=== PATIENT | female | born 1995 | race Caucasian/White ===

== ENCOUNTER 2019-12-29 21:50 | Inpatient (IN) | payer OTHER, BC ==
[2019-12-29] MEDS ORDERED: CEFAZOLIN 2 GM in Premix Bag 1 BAG IVPB SCH (22:30)
[2019-12-29] MEDS ORDERED: Dextrose 50% Abboject 50 ML SYRINGE SLOW IVP PRN (23:09)
[2019-12-29] MEDS ORDERED: Cyclobenzaprine 10 MG TAB PO PRN (23:09)
[2019-12-29] MEDS ORDERED: hydrALAZINE 20 MG/ML VIAL SLOW IVP PRN (23:09)
[2019-12-29] MEDS ORDERED: Ondansetron ODT 4 MG TAB PO PRN (23:09)
[2019-12-29] MEDS ORDERED: Dextrose 5% in Water 1,000 ML IV PRN (23:09)
[2019-12-29] MEDS ORDERED: Ondansetron PF 4 MG/2 ML Vial IVP PRN (23:09)
[2019-12-29] MEDS ORDERED: Promethazine HCl 25 MG/ML VIAL IM PRN ×2 (23:09)
[2019-12-29] MEDS ORDERED: Melatonin 3 MG TAB PO PRN (23:09)
[2019-12-29] MEDS ORDERED: Morphine 4 MG/ML VIAL ONE (23:13)
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
[2019-12-29] MEDS ORDERED: Ketorolac Tromethamine 30 MG/ML VIAL ONE (23:22)
[2019-12-29] MEDS ORDERED: Ketorolac Tromethamine 30 MG/ML VIAL IVP SCH (23:30)
[2019-12-29] MEDS ORDERED: Acetaminophen 500 MG TAB PO SCH (23:59)
[2019-12-29] MEDS ORDERED: traMADol HCl 50 MG TAB PO SCH (23:59)
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
[2019-12-30] MEDS ORDERED: Midazolam HCl 2 mg/2 ml Vial ONE (00:30)
[2019-12-30] MEDS ORDERED: Fentanyl 100 MCG/2 ML VIAL ONE ×2 (00:30→02:16)
[2019-12-30] MEDS ORDERED: Meperidine HCl/PF 25 MG/ML VIAL ONE (01:51)
[2019-12-30] MEDS ORDERED: Promethazine HCl 25 MG/ML VIAL ONE (02:26)
[2019-12-30] MEDS ORDERED: Morphine 2 MG/ML VIAL ONE (02:36)
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
[2019-12-30] MEDS: Morphine 2 MG/ML VIAL SLOW IVP PRN ×3 (03:32→07:53)
[2019-12-30] MEDS: traMADol HCl 50 MG TAB PO PRN ×3 (03:34→16:20)
[2019-12-30] MEDS: Sodium Chloride 0.9% 1,000 ML IV SCH (03:56)
[2019-12-30] MEDS: traMADol HCl 50 MG TAB PO SCH ×4 (03:59→22:42)
[2019-12-30] MEDS: Acetaminophen 500 MG TAB PO SCH ×4 (03:59→21:14)
[2019-12-30 04:15] VITALS: BMI 24.6
[2019-12-30] MEDS: CEFAZOLIN 2 GM in Premix Bag 1 BAG IVPB SCH ×3 (04:55→21:21)
[2019-12-30] MEDS: Levothyroxine Sodium 25 MCG TAB PO SCH (04:56)
[2019-12-30 05:30] LABS: #Lymphocytes 0.9 thou/uL (1.20-3.40); #Monocytes 0.4 thou/uL (0.11-0.59); #Neutrophils 9.3 thou/uL (1.40-6.50); %Basophils 0.2 % (0.0-1.0); %Eosinophils 0.2 % (0.0-10.0); %Lymphocytes 8.1 % (21.0-51.0); %Monocytes 3.7 % (0.0-10.0); %Neutrophils 87.8 % (42.0-75.0); Hemoglobin 9.8 g/dL (12.0-16.0); Mean Corpuscular HGB CONC 32.1 g/dL (32.0-36.0); Mean Corpuscular Hemoglobin 30.8 pg (27.0-31.0); Mean Platelet Volume 8.3 fL (7.4-10.4); Platelet Count 168 thou/uL (130-400); RBC Distribution Width 11.8 % (11.5-14.5); Red Blood Cell (RBC) Count 3.17 mill/uL (4.20-5.40); White Blood Cell (WBC) Count 10.6 thou/uL (4.8-10.8)
[2019-12-30 05:42] LABS: Anion Gap 11 mmol/L (10-20); BUN (Urea Nitrogen) 11 mg/dL (7.0-18.7); Calc. Creatinine Clearance 155 mL/min (70-130); Carbon Dioxide 21 mmol/L (22-29); Chloride 110 mmol/L (98-107); Estimated GFR-MDRD Greater than 90; Glucose 140 mg/dL (70-105); Sodium 138 mmol/L (136-145)
[2019-12-30] MEDS: Ibuprofen 600 MG TAB PO PRN ×2 (05:51→14:49)
[2019-12-30] MEDS: Bupropion 150 MG XL TAB PO SCH (07:57)
[2019-12-30] MEDS: Famotidine 20 MG TAB PO SCH ×2 (07:57→21:12)
[2019-12-30] MEDS: Propranolol HCl 20 MG TAB PO SCH ×2 (07:58→21:10)
[2019-12-30] MEDS: OXcarbazepine 300 MG TAB PO SCH ×2 (07:58→21:23)
--- NOTE | 2019-12-30 08:21 | RAD ---
LEFT FORELEG 2 VIEWS: Date: 12/30/2019 INDICATION: Open reduction and internal fixation of left tibia. FINDINGS: Submitted images demonstrate placement of external fixator pins within the tibial shaft. There is a h eavily comminuted tibial plateau fracture. Total fluoroscopic time was 16.1 seconds. Total exposure w as 1.36 milligray. IMPRESSION: External fixator placement traversing comminuted proximal tibial plateau fracture. POS: BH
[2019-12-30 08:46] LABS: Magnesium 1.8 mg/dL (1.6-2.6); Phosphorus 3.3 mg/dL (2.3-4.7)
[2019-12-30] MEDS ORDERED: Gabapentin 400 MG CAP PO SCH (09:00)
[2019-12-30] MEDS: Enoxaparin Sodium 40 MG/0.4 ML SYRINGE SC SCH (09:18)
[2019-12-30] MEDS ORDERED: Magnesium 2 GM/50 ML 2 GM in Premix Bag 1 BAG IVPB SCH (09:30)
[2019-12-30] MEDS ORDERED: PHOS-NAK 1 PKT PACK PO SCH (09:30)
[2019-12-30] MEDS ORDERED: Ondansetron PF 4 MG/2 ML Vial ONE (10:51)
[2019-12-30] MEDS ORDERED: Glycopyrrolate 0.2 MG/ML 5 ML SYRINGE ONE (10:51)
[2019-12-30] MEDS ORDERED: Rocuronium Bromide 10 MG/ML (10ML VIAL) ONE (10:51)
[2019-12-30] MEDS ORDERED: PROPOFOL 200 MG/20 ML VIAL ONE (10:51)
[2019-12-30] MEDS ORDERED: Dexamethasone 20 MG/5 ML VIAL ONE (10:51)
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
[2019-12-30] MEDS: Gabapentin 400 MG CAP PO SCH ×2 (14:43→21:12)
[2019-12-30] MEDS: Cyclobenzaprine 10 MG TAB PO PRN ×2 (14:49→21:13)
[2019-12-30 16:04] LABS: SARS-CoV-2 MS2 Positive; SARS-CoV-2 N Gene Negative; SARS-CoV-2 S Gene Negative; SARS-CoV-2 by NAA Not Detected (NotDetected); SARS-CoV-2 orf1ab Negative
[2019-12-30] MEDS ORDERED: Morphine 2 MG/ML VIAL SLOW IVP PRN (21:48)
[2019-12-30] MEDS: Ibuprofen 600 MG TAB PO SCH (22:42)
--- NOTE | 2019-12-31 00:25 | PRG ---
DATE OF SERVICE: 12/30/2019 SUBJECTIVE: The patient was seen during evening rounds, resting comfortably in no acute distress. The patient's nurse reports that she was having increased pain earlier, but has now fallen asleep. The patient is postop day 0, status post external fixation of her left tibial plateau fracture and fasciotomy of her left leg. OBJECTIVE: VITAL SIGNS: Stable and she remains afebrile. Urinary output has been adequate for the patient's age and weight. PLAN: Continue pain regimen and supportive care. Dr. Rawls plans to take the patient back to the OR on . Continue regular diet as tolerated. We will continue the patient's psychiatric medications. Job ID: [id number]
[2019-12-31] MEDS: traMADol HCl 50 MG TAB PO SCH ×4 (04:55→23:21)
[2019-12-31 04:57] LABS: #Eosinphils 0.1 thou/uL (0.0-0.7); #Lymphocytes 2.3 thou/uL (1.20-3.40); #Monocytes 0.5 thou/uL (0.11-0.59); #Neutrophils 3.8 thou/uL (1.40-6.50); %Basophils 0.3 % (0.0-1.0); %Eosinophils 1.3 % (0.0-10.0); %Monocytes 7.6 % (0.0-10.0); %Neutrophils 56.9 % (42.0-75.0); Hemoglobin 9.2 g/dL (12.0-16.0); Mean Corpuscular HGB CONC 32.5 g/dL (32.0-36.0); Mean Corpuscular Hemoglobin 31.9 pg (27.0-31.0); Platelet Count 145 thou/uL (130-400); RBC Distribution Width 11.8 % (11.5-14.5); Red Blood Cell (RBC) Count 2.88 mill/uL (4.20-5.40); White Blood Cell (WBC) Count 6.6 thou/uL (4.8-10.8)
[2019-12-31] MEDS: CEFAZOLIN 2 GM in Premix Bag 1 BAG IVPB SCH (04:57)
[2019-12-31] MEDS: Acetaminophen 500 MG TAB PO SCH ×4 (04:57→20:36)
[2019-12-31] MEDS: Levothyroxine Sodium 25 MCG TAB PO SCH (04:57)
[2019-12-31] MEDS: Ibuprofen 600 MG TAB PO SCH ×3 (04:57→20:36)
[2019-12-31 05:20] LABS: Anion Gap 8 mmol/L (10-20); BUN (Urea Nitrogen) 8 mg/dL (7.0-18.7); Calc. Creatinine Clearance 165 mL/min (70-130); Calcium 8.4 mg/dL (7.8-10.44); Carbon Dioxide 25 mmol/L (22-29); Chloride 108 mmol/L (98-107); Estimated GFR-MDRD Greater than 90; Glucose 89 mg/dL (70-105); Magnesium 2.1 mg/dL (1.6-2.6); Phosphorus 2.5 mg/dL (2.3-4.7); Potassium 3.8 mmol/L (3.5-5.1); Sodium 137 mmol/L (136-145)
[2019-12-31] MEDS ORDERED: PHOS-NAK 1 PKT PACK PO SCH (07:45)
[2019-12-31] MEDS: Bupropion 150 MG XL TAB PO SCH (08:08)
[2019-12-31] MEDS: Propranolol HCl 20 MG TAB PO SCH ×2 (08:09→20:38)
[2019-12-31] MEDS: Gabapentin 400 MG CAP PO SCH ×3 (08:09→20:37)
[2019-12-31] MEDS: Famotidine 20 MG TAB PO SCH ×2 (08:09→20:37)
[2019-12-31] MEDS: OXcarbazepine 300 MG TAB PO SCH ×2 (08:09→20:38)
[2019-12-31] MEDS: Enoxaparin Sodium 40 MG/0.4 ML SYRINGE SC SCH (08:10)
[2019-12-31] MEDS ORDERED: CEFAZOLIN 2 GM in Premix Bag 1 BAG IVPB SCH (08:30)
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
--- NOTE | 2019-12-31 14:53 | CT ---
CT Lower Ext Lt WO Con History: External fixator placement Comparison: Radiograph 2 days prior Findings: Large lipohemarthrosis as well as small foci of osseous debris within the superolateral rec ess. Extensive edema within the anterior, lateral, and posterior compartments of the left leg below the knee. Recent anterior left leg fasciotomy. The medial femoral condyle is not fractured. Intra-articular fracture of the lateral femoral condyle involves the anterolateral 25% articular surface and extends above the articular cortex 4.5 cm. There is interposed bone in the fracture fragment which prevents apposition of the medullary trabecul a by 3-4 mm. At the articular surface there is impaction of the articular cortex into the medullary cavity with a 9 mm in transverse and 4 mm in AP dimension cortical gap. Comminuted fracture of the medial tibial plateau with 4 mm anterior surface incongruence. The anterio r intercondylar eminences free-floating. There is dissociation between the metaphysis and diaphysis. Of the lateral tibial plateau there is a 2 cm in transverse of the articular surfaces which extends a nterior-posterior. The tibial fracture extends distal to the joints approximately 12 cm. No fibular fracture. Concern for interposition of the popliteus muscle into the fracture fragments of the tibia. Normal location of the patella. Impression: 1. Severely comminuted right tibial plateau fractures as described with large articular surface gaps as well as impacted cortical bone. 2. Sagittal oblique fracture through the lateral femoral condyle with interposed cortical bone betwee n the fracture fragments preventing apposition. 3. Concern for interposition of popliteus muscle within the fragmented component of the distal tibial fracture. 4. Recent fasciotomy change with moderate intramuscular and intermuscular edema of the anterior, late ral and posterior compartments. 5. Small fragments of osseous debris is seen between the soleus and gastrocnemius muscles likely from ruptured popliteus bursa.
--- NOTE | 2019-12-31 21:41 | PRG ---
DATE OF SERVICE: 12/31/2019 SUBJECTIVE: The patient was seen during evening rounds, awake, alert, in no distress. The patient reports some [id number] pain to her left lower extremity. The patient currently has an external fixator in place. The patient has been tolerating a diet and denies any nausea or vomiting. The patient became tearful after talking about having continued pain. The patient reports passing out whenever she attempted to work with Physical Therapy. Vital signs stable, afebrile. Urinary output is adequate for patient's age and weight. PLAN: N.p.o. after midnight. Orthopedic Surgery plans to take the patient to the OR in the morning. We will continue pain regimen. Job ID: [id number]
[2019-12-31] MEDS: Cyclobenzaprine 10 MG TAB PO PRN (21:42)
[2020-01-01] MEDS: Ibuprofen 600 MG TAB PO SCH ×3 (05:03→22:59)
[2020-01-01] MEDS: Acetaminophen 500 MG TAB PO SCH ×4 (05:03→22:59)
[2020-01-01] MEDS: Levothyroxine Sodium 25 MCG TAB PO SCH (05:03)
[2020-01-01] MEDS: traMADol HCl 50 MG TAB PO SCH ×4 (05:04→19:52)
[2020-01-01 08:02] LABS: #Eosinphils 0.1 thou/uL (0.0-0.7); #Lymphocytes 1.6 thou/uL (1.20-3.40); #Monocytes 0.5 thou/uL (0.11-0.59); #Neutrophils 3.9 thou/uL (1.40-6.50); %Basophils 0.4 % (0.0-1.0); %Eosinophils 2.2 % (0.0-10.0); %Lymphocytes 26.4 % (21.0-51.0); %Monocytes 7.9 % (0.0-10.0); %Neutrophils 63.1 % (42.0-75.0); Hemoglobin 9.1 g/dL (12.0-16.0); Mean Corpuscular HGB CONC 33.2 g/dL (32.0-36.0); Mean Corpuscular Hemoglobin 32.3 pg (27.0-31.0); Mean Corpuscular Volume 97.4 fL (78.0-98.0); Mean Platelet Volume 8.1 fL (7.4-10.4); Platelet Count 172 thou/uL (130-400); RBC Distribution Width 11.7 % (11.5-14.5); Red Blood Cell (RBC) Count 2.82 mill/uL (4.20-5.40); White Blood Cell (WBC) Count 6.1 thou/uL (4.8-10.8)
[2020-01-01] MEDS: Gabapentin 400 MG CAP PO SCH ×3 (08:14→19:52)
[2020-01-01] MEDS: OXcarbazepine 300 MG TAB PO SCH ×2 (08:14→19:52)
[2020-01-01] MEDS: Famotidine 20 MG TAB PO SCH (08:14)
[2020-01-01] MEDS: Enoxaparin Sodium 40 MG/0.4 ML SYRINGE SC SCH (08:15)
[2020-01-01 08:59] LABS: Anion Gap 12 mmol/L (10-20); BUN (Urea Nitrogen) 11 mg/dL (7.0-18.7); Calc. Creatinine Clearance 173 mL/min (70-130); Calcium 8.8 mg/dL (7.8-10.44); Carbon Dioxide 24 mmol/L (22-29); Chloride 105 mmol/L (98-107); Estimated GFR-MDRD Greater than 90; Glucose 88 mg/dL (70-105); Magnesium 1.9 mg/dL (1.6-2.6); Phosphorus 3.3 mg/dL (2.3-4.7); Potassium 3.7 mmol/L (3.5-5.1); Sodium 137 mmol/L (136-145)
[2020-01-01] MEDS ORDERED: Morphine 4 MG/ML VIAL SLOW IVP PRN (09:25)
[2020-01-01] MEDS: Propranolol HCl 20 MG TAB PO SCH ×2 (10:00→19:52)
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
[2020-01-01] MEDS ORDERED: Fentanyl 100 MCG/2 ML VIAL ONE ×3 (11:51→13:47)
[2020-01-01] MEDS ORDERED: Midazolam HCl 2 mg/2 ml Vial ONE (11:51)
[2020-01-01] MEDS ORDERED: Rocuronium Bromide 10 MG/ML (10ML VIAL) ONE (12:18)
[2020-01-01] MEDS ORDERED: Glycopyrrolate 0.2 MG/ML 5 ML SYRINGE ONE (12:18)
[2020-01-01] MEDS ORDERED: Ondansetron PF 4 MG/2 ML Vial ONE (12:18)
[2020-01-01] MEDS ORDERED: Lidocaine 1% PF 5 ML VIAL ONE (12:18)
[2020-01-01] MEDS ORDERED: PROPOFOL 200 MG/20 ML VIAL ONE (12:18)
[2020-01-01] MEDS ORDERED: Dexamethasone 20 MG/5 ML VIAL ONE (12:18)
[2020-01-01] MEDS ORDERED: Ketorolac Tromethamine 30 MG/ML VIAL ONE (12:18)
[2020-01-01] MEDS ORDERED: SUGAMMADEX SODIUM 200 MG/2 ML VIAL ONE (13:14)
[2020-01-01] MEDS ORDERED: Promethazine HCl 25 MG/ML VIAL SLOW IVP PRN (13:28)
[2020-01-01] MEDS ORDERED: Ondansetron HCl/PF 4 MG/2 ML Vial IVP PRN (13:28)
[2020-01-01] MEDS ORDERED: Promethazine HCl 25 MG/ML VIAL IM PRN (13:28)
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
[2020-01-01] MEDS: Bupropion 150 MG XL TAB PO SCH (14:26)
[2020-01-01] MEDS: CEFAZOLIN 2 GM in Premix Bag 1 BAG IVPB SCH (19:51)
[2020-01-01] MEDS: Cyclobenzaprine 10 MG TAB PO PRN (20:46)
[2020-01-02] MEDS: Acetaminophen 500 MG TAB PO SCH ×4 (03:53→20:35)
[2020-01-02] MEDS: CEFAZOLIN 2 GM in Premix Bag 1 BAG IVPB SCH (03:53)
[2020-01-02] MEDS: traMADol HCl 50 MG TAB PO SCH ×4 (03:53→20:35)
[2020-01-02 04:54] LABS: #Lymphocytes 1.9 thou/uL (1.20-3.40); #Monocytes 0.6 thou/uL (0.11-0.59); #Neutrophils 4.7 thou/uL (1.40-6.50); %Basophils 0.2 % (0.0-1.0); %Eosinophils 0.6 % (0.0-10.0); %Lymphocytes 25.9 % (21.0-51.0); %Monocytes 7.7 % (0.0-10.0); %Neutrophils 65.6 % (42.0-75.0); Hemoglobin 8.6 g/dL (12.0-16.0); Mean Corpuscular HGB CONC 33.6 g/dL (32.0-36.0); Mean Corpuscular Hemoglobin 31.9 pg (27.0-31.0); Mean Platelet Volume 7.9 fL (7.4-10.4); Platelet Count 213 thou/uL (130-400); RBC Distribution Width 11.5 % (11.5-14.5); White Blood Cell (WBC) Count 7.2 thou/uL (4.8-10.8)
[2020-01-02 05:15] LABS: Phosphorus 3.6 mg/dL (2.3-4.7)
[2020-01-02 05:20] LABS: Anion Gap 11 mmol/L (10-20); BUN (Urea Nitrogen) 11 mg/dL (7.0-18.7); Calc. Creatinine Clearance 185 mL/min (70-130); Calcium 9.1 mg/dL (7.8-10.44); Carbon Dioxide 27 mmol/L (22-29); Chloride 104 mmol/L (98-107); Estimated GFR-MDRD Greater than 90; Glucose 105 mg/dL (70-105); Potassium 3.8 mmol/L (3.5-5.1); Sodium 138 mmol/L (136-145)
[2020-01-02] MEDS: Levothyroxine Sodium 25 MCG TAB PO SCH (06:09)
[2020-01-02] MEDS: Ibuprofen 600 MG TAB PO SCH ×3 (06:09→20:35)
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
[2020-01-02] MEDS ORDERED: Potassium Phosphate 15 MMOL in Sodium Chloride 0.9% 250 ML 250 ML IVPB SCH (07:15)
[2020-01-02] MEDS: Gabapentin 400 MG CAP PO SCH ×3 (09:56→20:35)
[2020-01-02] MEDS: Enoxaparin Sodium 40 MG/0.4 ML SYRINGE SC SCH (09:56)
[2020-01-02] MEDS: Bupropion 150 MG XL TAB PO SCH (09:57)
[2020-01-02] MEDS: OXcarbazepine 300 MG TAB PO SCH ×2 (09:57→20:37)
[2020-01-02] MEDS: Propranolol HCl 20 MG TAB PO SCH ×2 (10:09→21:38)
[2020-01-02] MEDS ORDERED: Sodium Chloride 0.9% 1,000 ML IV SCH (13:00)
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
[2020-01-02] MEDS: Cyclobenzaprine 10 MG TAB PO PRN (17:43)
[2020-01-03] MEDS: Acetaminophen 500 MG TAB PO SCH ×4 (04:42→21:00)
[2020-01-03] MEDS: Ibuprofen 600 MG TAB PO SCH ×3 (04:42→21:00)
[2020-01-03] MEDS: traMADol HCl 50 MG TAB PO SCH ×4 (04:43→21:00)
[2020-01-03] MEDS: Levothyroxine Sodium 25 MCG TAB PO SCH (04:43)
[2020-01-03] MEDS: Cyclobenzaprine 10 MG TAB PO PRN (04:47)
[2020-01-03 05:15] LABS: Hemoglobin 8.2 g/dL (12.0-16.0); Mean Corpuscular Hemoglobin 32.2 pg (27.0-31.0); Mean Corpuscular Volume 97.4 fL (78.0-98.0); Mean Platelet Volume 7.6 fL (7.4-10.4); Platelet Count 184 thou/uL (130-400); Red Blood Cell (RBC) Count 2.55 mill/uL (4.20-5.40); White Blood Cell (WBC) Count 6.5 thou/uL (4.8-10.8)
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
[2020-01-03] MEDS: Propranolol HCl 20 MG TAB PO SCH ×2 (09:11→21:02)
[2020-01-03] MEDS: Bupropion 150 MG XL TAB PO SCH (09:19)
[2020-01-03] MEDS: OXcarbazepine 300 MG TAB PO SCH ×2 (09:19→21:03)
[2020-01-03] MEDS: Gabapentin 400 MG CAP PO SCH ×3 (09:19→21:00)
[2020-01-03] MEDS: Enoxaparin Sodium 40 MG/0.4 ML SYRINGE SC SCH (09:20)
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
[2020-01-03] MEDS: Methocarbamol 500 MG TAB PO PRN (13:58)
[2020-01-04] MEDS: traMADol HCl 50 MG TAB PO SCH ×4 (05:01→19:58)
[2020-01-04] MEDS: Acetaminophen 500 MG TAB PO SCH ×4 (05:01→21:56)
[2020-01-04] MEDS: Ibuprofen 600 MG TAB PO SCH ×3 (05:03→21:56)
[2020-01-04] MEDS: Methocarbamol 500 MG TAB PO PRN (05:03)
[2020-01-04] MEDS: Levothyroxine Sodium 25 MCG TAB PO SCH (05:03)
[2020-01-04] MEDS: OXcarbazepine 300 MG TAB PO SCH ×2 (10:58→19:59)
[2020-01-04] MEDS: Gabapentin 400 MG CAP PO SCH ×3 (10:58→19:57)
[2020-01-04] MEDS: Bupropion 150 MG XL TAB PO SCH (10:58)
[2020-01-04] MEDS: Propranolol HCl 20 MG TAB PO SCH ×2 (11:02→19:57)
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
--- NOTE | 2020-01-04 23:23 | PRG ---
DATE OF SERVICE: 01/04/2020 SUBJECTIVE: The patient was seen during evening rounds, sitting up in hospital bed, awake, alert, in no distress. The patient is eating dinner and tolerating well. The patient continues to have some mild pain. OBJECTIVE: VITAL SIGNS: Stable. The patient is afebrile. GENERAL: Urinary output has been adequate for patient's weight. PLAN: Continue supportive care and pain regimen. The patient will be n.p.o. after midnight as she will be going to the OR to have her ex-fix to her left lower extremity internalized. We will continue lactulose until the patient has a bowel movement. Job ID: [id number]
[2020-01-05] MEDS: Acetaminophen 500 MG TAB PO SCH ×4 (03:24→21:30)
[2020-01-05] MEDS: traMADol HCl 50 MG TAB PO SCH ×4 (03:24→21:30)
[2020-01-05] MEDS: Levothyroxine Sodium 25 MCG TAB PO SCH (05:19)
[2020-01-05] MEDS: Ibuprofen 600 MG TAB PO SCH ×3 (05:19→21:30)
[2020-01-05] MEDS ORDERED: CEFAZOLIN 2 GM in Premix Bag 1 BAG IVPB SCH (08:00)
[2020-01-05] MEDS: Gabapentin 400 MG CAP PO SCH ×3 (10:56→21:31)
[2020-01-05] MEDS: Propranolol HCl 20 MG TAB PO SCH ×2 (10:57→21:29)
[2020-01-05] MEDS: Bupropion 150 MG XL TAB PO SCH (10:57)
[2020-01-05] MEDS: OXcarbazepine 300 MG TAB PO SCH ×2 (10:58→21:52)
[2020-01-05] MEDS ORDERED: PROPOFOL 200 MG/20 ML VIAL ONE (11:39)
[2020-01-05] MEDS ORDERED: PHENYLEPHRINE-NS 100 MCG/ML 10 ML SYRINGE ONE (11:39)
[2020-01-05] MEDS ORDERED: Dexamethasone 20 MG/5 ML VIAL ONE (11:39)
[2020-01-05] MEDS ORDERED: Lidocaine 1% PF 5 ML VIAL ONE (11:39)
[2020-01-05] MEDS ORDERED: Ondansetron PF 4 MG/2 ML Vial ONE (11:39)
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
[2020-01-05] MEDS ORDERED: Midazolam HCl 2 mg/2 ml Vial ONE (14:55)
[2020-01-05] MEDS ORDERED: Fentanyl 100 MCG/2 ML VIAL ONE ×4 (14:55→19:32)
[2020-01-05] MEDS ORDERED: Lidocaine 1% (PF) 30 ML VIAL ONE (15:03)
[2020-01-05] MEDS ORDERED: HYDROmorphone 0.5 MG/0.5 ML SYRINGE ONE (16:20)
[2020-01-05] MEDS ORDERED: Meperidine HCl/PF 25 MG/ML VIAL SLOW IVP PRN ×2 (19:12)
[2020-01-05] MEDS ORDERED: Promethazine HCl 25 MG/ML VIAL IM PRN (19:12)
[2020-01-05] MEDS ORDERED: Ondansetron HCl/PF 4 MG/2 ML Vial IVP PRN (19:12)
[2020-01-05] MEDS ORDERED: HYDROmorphone 2 MG/ML VIAL SLOW IVP PRN (19:12)
[2020-01-05] MEDS ORDERED: Promethazine HCl 25 MG/ML VIAL SLOW IVP PRN (19:12)
--- NOTE | 2020-01-05 20:09 | RAD ---
INTRAOPERATIVE FLUOROSCOPY: History: Left knee ORIF Exposure: 34.9 seconds, 1.8 mGy*cm^2 FINDINGS: Four intraoperative fluoroscopic images demonstrate internal fixation of a distal tibial fracture. Th ere are two screws projecting over the distal femur. IMPRESSION: Intraoperative fluoroscopy as above. POS: OFF
[2020-01-05] MEDS: CEFAZOLIN 2 GM in Premix Bag 1 BAG IVPB SCH (21:31)
[2020-01-05] MEDS: Methocarbamol 500 MG TAB PO PRN (21:53)
--- NOTE | 2020-01-05 22:59 | PRG ---
DATE OF SERVICE: 01/05/2020 SUBJECTIVE: The patient was seen during evening rounds, resting comfortably, in no acute distress. The patient arouse to voice and reports some moderate pain. The patient is postop day 0 status post internalization of her external fixator. The patient reports decreased appetite at this time. Left knee is splinted. Dressing is clean, dry, and intact. Left knee immobilizer in place. Vital signs stable, afebrile. Urinary output is adequate for the patient's age and weight. PLAN: Continue supportive care and pain regimen. Continue regular diet as tolerated. Increase physical and occupational therapy. We will continue to monitor lithium levels. The patient is pending insurance approval to inpatient rehab. Job ID: [id number]
[2020-01-06] MEDS: Acetaminophen 500 MG TAB PO SCH ×4 (03:13→22:00)
[2020-01-06] MEDS: traMADol HCl 50 MG TAB PO SCH ×4 (03:13→22:00)
[2020-01-06] MEDS: Methocarbamol 500 MG TAB PO PRN ×2 (04:03→15:52)
[2020-01-06 05:06] LABS: #Lymphocytes 1.2 thou/uL (1.20-3.40); #Monocytes 0.8 thou/uL (0.11-0.59); #Neutrophils 6.4 thou/uL (1.40-6.50); %Basophils 0.1 % (0.0-1.0); %Eosinophils 0.1 % (0.0-10.0); %Lymphocytes 14.5 % (21.0-51.0); %Monocytes 9.6 % (0.0-10.0); %Neutrophils 75.7 % (42.0-75.0); Hemoglobin 7.7 g/dL (12.0-16.0); Mean Corpuscular HGB CONC 32.1 g/dL (32.0-36.0); Mean Corpuscular Hemoglobin 30.4 pg (27.0-31.0); Mean Corpuscular Volume 94.5 fL (78.0-98.0); Mean Platelet Volume 7.6 fL (7.4-10.4); Platelet Count 403 thou/uL (130-400); RBC Distribution Width 11.7 % (11.5-14.5); Red Blood Cell (RBC) Count 2.54 mill/uL (4.20-5.40); White Blood Cell (WBC) Count 8.4 thou/uL (4.8-10.8)
[2020-01-06 05:31] LABS: Anion Gap 13 mmol/L (10-20); BUN (Urea Nitrogen) 11 mg/dL (7.0-18.7); Calc. Creatinine Clearance 185 mL/min (70-130); Calcium 9.4 mg/dL (7.8-10.44); Carbon Dioxide 24 mmol/L (22-29); Chloride 103 mmol/L (98-107); Estimated GFR-MDRD Greater than 90; Glucose 101 mg/dL (70-105); Magnesium 2.1 mg/dL (1.6-2.6); Phosphorus 3.5 mg/dL (2.3-4.7); Potassium 4.3 mmol/L (3.5-5.1); Sodium 136 mmol/L (136-145)
[2020-01-06] MEDS: CEFAZOLIN 2 GM in Premix Bag 1 BAG IVPB SCH ×3 (06:00→22:08)
[2020-01-06] MEDS: Ibuprofen 600 MG TAB PO SCH ×3 (06:01→19:32)
[2020-01-06] MEDS: Levothyroxine Sodium 25 MCG TAB PO SCH (06:01)
[2020-01-06] MEDS: Bupropion 150 MG XL TAB PO SCH (08:44)
[2020-01-06] MEDS: Propranolol HCl 20 MG TAB PO SCH ×2 (08:45→22:05)
[2020-01-06] MEDS: Gabapentin 400 MG CAP PO SCH ×3 (08:45→22:01)
[2020-01-06] MEDS: OXcarbazepine 300 MG TAB PO SCH ×2 (08:51→22:08)
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
[2020-01-06] MEDS: Enoxaparin Sodium 40 MG/0.4 ML SYRINGE SC SCH (14:50)
[2020-01-06] MEDS ORDERED: Ketorolac Tromethamine 30 MG/ML VIAL IVP SCH (19:30)
[2020-01-06] MEDS ORDERED: Ketorolac Tromethamine 30 MG/ML VIAL ONE (19:34)
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
[2020-01-06] MEDS: Ascorbic Acid 500 mg Chewable Tablet PO SCH (22:01)
[2020-01-07] MEDS: Methocarbamol 500 MG TAB PO PRN (01:29)
[2020-01-07] MEDS: Acetaminophen 500 MG TAB PO SCH ×4 (03:24→20:28)
[2020-01-07] MEDS: traMADol HCl 50 MG TAB PO SCH ×4 (03:25→20:29)
[2020-01-07 05:25] LABS: #Eosinphils 0.1 thou/uL (0.0-0.7); #Lymphocytes 1.9 thou/uL (1.20-3.40); #Monocytes 0.7 thou/uL (0.11-0.59); #Neutrophils 4.3 thou/uL (1.40-6.50); %Basophils 0.3 % (0.0-1.0); %Eosinophils 1.7 % (0.0-10.0); %Lymphocytes 26.6 % (21.0-51.0); %Neutrophils 61.3 % (42.0-75.0); Hemoglobin 7.5 g/dL (12.0-16.0); Mean Corpuscular Hemoglobin 31.3 pg (27.0-31.0); Mean Corpuscular Volume 94.8 fL (78.0-98.0); Mean Platelet Volume 7.3 fL (7.4-10.4); Platelet Count 414 thou/uL (130-400); RBC Distribution Width 12.1 % (11.5-14.5); Red Blood Cell (RBC) Count 2.39 mill/uL (4.20-5.40)
[2020-01-07] MEDS: Ibuprofen 600 MG TAB PO SCH ×3 (05:37→20:28)
[2020-01-07] MEDS: Levothyroxine Sodium 25 MCG TAB PO SCH (05:37)
[2020-01-07] MEDS ORDERED: Senokot S 8.6-50 MG TAB PO SCH (09:00)
[2020-01-07] MEDS ORDERED: Polyethylene Glycol 3350 17 GM Packet PO SCH (09:00)
[2020-01-07] MEDS: Ferrous Sulfate 325 MG TAB PO SCH ×2 (09:53→16:43)
[2020-01-07] MEDS: Polyethylene Glycol 3350 17 GM Packet PO SCH (09:53)
[2020-01-07] MEDS: Bupropion 150 MG XL TAB PO SCH (09:54)
[2020-01-07] MEDS: Enoxaparin Sodium 40 MG/0.4 ML SYRINGE SC SCH (09:54)
[2020-01-07] MEDS: Senokot S 8.6-50 MG TAB PO SCH ×2 (09:54→20:33)
[2020-01-07] MEDS: Propranolol HCl 20 MG TAB PO SCH ×2 (09:55→20:31)
[2020-01-07] MEDS: OXcarbazepine 300 MG TAB PO SCH ×2 (09:55→20:30)
[2020-01-07] MEDS: Gabapentin 400 MG CAP PO SCH ×3 (09:56→20:28)
[2020-01-07] MEDS: Ascorbic Acid 500 mg Chewable Tablet PO SCH ×2 (09:57→20:33)
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
[2020-01-08] MEDS: traMADol HCl 50 MG TAB PO SCH (04:09)
[2020-01-08] MEDS: Acetaminophen 500 MG TAB PO SCH ×4 (04:09→22:14)
[2020-01-08] MEDS: Ibuprofen 600 MG TAB PO SCH ×3 (05:48→22:14)
[2020-01-08] MEDS: Levothyroxine Sodium 25 MCG TAB PO SCH (05:48)
[2020-01-08 07:40] LABS: Hemoglobin 7.7 g/dL (12.0-16.0); Platelet Count 429 thou/uL (130-400)
[2020-01-08] MEDS: Propranolol HCl 20 MG TAB PO SCH ×2 (09:30→20:30)
[2020-01-08] MEDS: Bupropion 150 MG XL TAB PO SCH (09:30)
[2020-01-08] MEDS: Senokot S 8.6-50 MG TAB PO SCH ×2 (09:31→20:42)
[2020-01-08] MEDS: Enoxaparin Sodium 40 MG/0.4 ML SYRINGE SC SCH (09:31)
[2020-01-08] MEDS: Ascorbic Acid 500 mg Chewable Tablet PO SCH ×2 (09:31→20:29)
[2020-01-08] MEDS: OXcarbazepine 300 MG TAB PO SCH ×2 (09:31→20:30)
[2020-01-08] MEDS: Polyethylene Glycol 3350 17 GM Packet PO SCH (09:31)
[2020-01-08] MEDS: Gabapentin 400 MG CAP PO SCH ×3 (09:32→20:29)
[2020-01-08] MEDS: Ferrous Sulfate 325 MG TAB PO SCH ×2 (09:32→14:37)
[2020-01-08] MEDS: traMADol HCl 50 MG TAB PO PRN ×2 (09:32→20:31)
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
[2020-01-08] MEDS ORDERED: Cepastat Lozenges 1 LOZ PO PRN (19:12)
[2020-01-08] MEDS: Methocarbamol 500 MG TAB PO PRN (22:59)
[2020-01-09] MEDS: Acetaminophen 500 MG TAB PO SCH ×2 (03:58→09:58)
[2020-01-09] MEDS: traMADol HCl 50 MG TAB PO PRN ×2 (03:59→09:58)
[2020-01-09 05:16] LABS: Hemoglobin 9.1 g/dL (12.0-16.0); Platelet Count 439 thou/uL (130-400)
[2020-01-09] MEDS: Levothyroxine Sodium 25 MCG TAB PO SCH (06:32)
[2020-01-09] MEDS: Methocarbamol 500 MG TAB PO PRN ×2 (06:32→13:44)
[2020-01-09] MEDS: Ibuprofen 600 MG TAB PO SCH ×2 (06:32→13:44)
[2020-01-09] MEDS: Bupropion 150 MG XL TAB PO SCH (08:07)
[2020-01-09] MEDS: Gabapentin 400 MG CAP PO SCH (08:07)
[2020-01-09] MEDS: Ascorbic Acid 500 mg Chewable Tablet PO SCH (08:08)
[2020-01-09] MEDS: Ferrous Sulfate 325 MG TAB PO SCH (08:08)
[2020-01-09] MEDS: Enoxaparin Sodium 40 MG/0.4 ML SYRINGE SC SCH (08:08)
[2020-01-09] MEDS: Propranolol HCl 20 MG TAB PO SCH (08:09)
[2020-01-09] MEDS: Polyethylene Glycol 3350 17 GM Packet PO SCH (09:53)
[2020-01-09] MEDS: Senokot S 8.6-50 MG TAB PO SCH (09:54)
[2020-01-09] MEDS: OXcarbazepine 300 MG TAB PO SCH (09:59)
[2020-01-09 12:02] VITALS: BP 101/61; TEMP 98.7
--- NOTE | 2020-01-12 07:26 | PQF ---
CLINICAL DOCUMENTATION CLARIFICATION FORM: Dear : Guru Rawls Date / Time: 01/12/2020 07:25 Please exercise your independent, professional judgment in responding to the clarification form. Clinical indicators are provided on the bottom of this form for your review Can you please specify the type and depth of patients debridement? Please check appropriate box(es): [ ] Excisional Debridement: Depth / layer: (deepest layer of debridement): [ ] Skin [ ] Subcutaneous [ ] Fascia [ ] Muscle [ ] Tendon [ x ] Bone [ ] Non-excisional Debridement: (Removal by ?ushing, brushing, chemical, or washing) Depth / layer: (deepest layer of debridement): [ ] Skin [ ] Subcutaneous [ ] Fascia [ ] Muscle [ ] Tendon [ ] Bone [ ] Incision and Drainage only (No Debridement): Depth: [ ] Skin [ ] Subcutaneous [ ] Fascia [ ] Muscle [ ] Tendon [ ] Bone [ ] Other procedure diagnosis [ ] Unable to determine Physician Signature: Date/Time: For continuity of documentation, please document condition throughout progress notes and discharge summary. Thank You. To be completed by CDI/Coding staff for physician review: Present Clinical Indicators - Signs / Symptoms / Labs Results and Location in Medical Record [x] irrigation and debridement with closure of left leg fasciotomy wound OP Note 12/31 [x] We began the procedure by irrigating the patients wound OP Note 12/31 [x] We gently debrided the wound and thoroughly irrigated with copious lavage OP Note 12/31 Present Risk Factors Results and Location in Medical Record [x] Left bicondylar tibial fracture Consult 12/28 [x] Smoker Consult 12/28 [x] Left great toe fracture Consult 12/28 [x] Left toes fracture Consult 12/28 [x] Compartment syndrome OP Note 12/29 Present Treatments Results and Location in Medical Record [x] Tibia xray Collected 12/29 [x] Reduction with external fixator OP Note 12/29 [x] ORIF OP Note 01/05 [x] Irrigation and debridement with closure of left leg fasciotomy wound OP Note 12/31 [x] Orthopedic Consult Consult 12/28 CDS/Roll Wrapper Signature: Kofi Chisholm Phone #: [phone] Date/Time: 01/12/2020 07:25 This is a permanent part of the Medical Record [facility]
== END 2020-01-09 14:05 | DRG 481 ==
LOC: ERS 21:50 → SURG B 22:13
PROVIDERS: ADMIT Surgery; ATTEND Surgery
PROC: 0QSH35Z Reposition Left Tibia with External Fixation Device, Percutaneous Approach (ICD-10-PCS; principal; 2019-12-30)
PROC: 0KNT0ZZ Release Left Lower Leg Muscle, Open Approach (ICD-10-PCS; 2019-12-30)
PROC: 0QBH0ZZ Excision of Left Tibia, Open Approach (ICD-10-PCS; 2020-01-01)
PROC: 0QSC04Z Reposition Left Lower Femur with Internal Fixation Device, Open Approach (ICD-10-PCS; 2020-01-05)
PROC: 0QSH04Z Reposition Left Tibia with Internal Fixation Device, Open Approach (ICD-10-PCS; 2020-01-05)
PROC: 0QPHX5Z Removal of External Fixation Device from Left Tibia, External Approach (ICD-10-PCS; 2020-01-05)
PROC: 30233N1 Transfusion of Nonautologous Red Blood Cells into Peripheral Vein, Percutaneous Approach (ICD-10-PCS; 2020-01-08)
DX: S82.142A Displaced bicondylar fracture of left tibia, initial encounter for closed fracture (principal); S72.422A Displaced fracture of lateral condyle of left femur, initial encounter for closed fracture; T79.A22A Traumatic compartment syndrome of left lower extremity, initial encounter; D62 Acute posthemorrhagic anemia; F31.9 Bipolar disorder, unspecified; F41.9 Anxiety disorder, unspecified; S92.412A Displaced fracture of proximal phalanx of left great toe, initial encounter for closed fracture; S92.912A Unspecified fracture of left toe(s), initial encounter for closed fracture; F17.200 Nicotine dependence, unspecified, uncomplicated; Z88.0 Allergy status to penicillin; V97.22XA Parachutist injured on landing, initial encounter
CPT/HCPCS: 36415; 36430; 76000; 80048; 80178; 83735; 84100; 85014; 85018; 85025; 85027; 85049; 86850; 86900; 86901; 87635; 96365; 96375; C1713; G0390; J0690; J1100; J1170; J1650; J1885; J2001; J2175; J2250; J2270; J2405; J2550; J2704; J3010; J3475; J7050; P9016; U0003

== ENCOUNTER 2020-01-28 11:32 | Inpatient (IN) | payer BC, OTHER ==
[2020-01-28] MEDS ORDERED: traMADol HCl 50 MG TAB PO PRN (14:46)
[2020-01-28 14:47] VITALS: BMI 23.6
[2020-01-28] MEDS: HYDROcodone/Acetaminophen 5/325 mg Tablet PO PRN ×2 (14:59→20:53)
[2020-01-28] MEDS: Vancomycin 1 GM in Premix Bag 1 BAG IVPB SCH (15:23)
[2020-01-28 15:34] LABS: #Eosinphils 0.1 thou/uL (0.0-0.7); #Lymphocytes 1.4 thou/uL (1.20-3.40); #Monocytes 0.4 thou/uL (0.11-0.59); #Neutrophils 4.8 thou/uL (1.40-6.50); %Basophils 0.3 % (0.0-1.0); %Eosinophils 2.1 % (0.0-10.0); %Lymphocytes 20.9 % (21.0-51.0); %Monocytes 5.3 % (0.0-10.0); %Neutrophils 71.4 % (42.0-75.0); Hemoglobin 10.9 g/dL (12.0-16.0); Mean Corpuscular HGB CONC 31.2 g/dL (32.0-36.0); Mean Corpuscular Volume 96.2 fL (78.0-98.0); Mean Platelet Volume 8.5 fL (7.4-10.4); Platelet Count 208 thou/uL (130-400); Red Blood Cell (RBC) Count 3.64 mill/uL (4.20-5.40); White Blood Cell (WBC) Count 6.7 thou/uL (4.8-10.8)
[2020-01-28 15:49] LABS: Anion Gap 13 mmol/L (10-20); BUN (Urea Nitrogen) 13 mg/dL (7.0-18.7); Calc. Creatinine Clearance 144 mL/min (70-130); Calcium 8.8 mg/dL (7.8-10.44); Carbon Dioxide 20 mmol/L (22-29); Chloride 107 mmol/L (98-107); Estimated GFR-MDRD Greater than 90; Glucose 84 mg/dL (70-105); Potassium 4.3 mmol/L (3.5-5.1); Sodium 136 mmol/L (136-145)
[2020-01-28] MEDS: Morphine 2 MG/ML VIAL SLOW IVP PRN (19:57)
[2020-01-28] MEDS ORDERED: diphenhydrAMINE 25 MG CAP PO PRN (22:28)
[2020-01-28] MEDS: Piperacillin/Tazobactam 3.375 GM in Sodium Chloride 0.9% 100 ML IVPB SCH (22:33)
[2020-01-28] MEDS: traMADol HCl 50 MG TAB PO PRN (23:46)
[2020-01-29] MEDS: Vancomycin 1 GM in Premix Bag 1 BAG IVPB SCH ×2 (03:36→17:05)
[2020-01-29] MEDS: Piperacillin/Tazobactam 3.375 GM in Sodium Chloride 0.9% 100 ML IVPB SCH ×4 (04:43→22:09)
[2020-01-29] MEDS: traMADol HCl 50 MG TAB PO PRN ×2 (05:43→20:36)
[2020-01-29] MEDS: Levothyroxine Sodium 25 MCG TAB PO SCH (05:46)
[2020-01-29] MEDS: HYDROcodone/Acetaminophen 10/325 mg Tablet PO PRN ×4 (09:30→22:23)
[2020-01-29] MEDS: Bupropion 150 MG XL TAB PO SCH (09:32)
[2020-01-29] MEDS: Gabapentin 400 MG CAP PO SCH ×3 (09:33→22:08)
[2020-01-29] MEDS: Lithium Carbonate 150 MG CAP PO SCH ×2 (09:37→22:06)
[2020-01-29] MEDS: OXcarbazepine 300 MG TAB PO SCH ×2 (09:38→22:07)
[2020-01-29] MEDS ORDERED: Lidocaine 1% PF 5 ML VIAL ONE (09:58)
[2020-01-29] MEDS ORDERED: Dexamethasone 20 MG/5 ML VIAL ONE (09:58)
[2020-01-29] MEDS ORDERED: PROPOFOL 200 MG/20 ML VIAL ONE (09:58)
[2020-01-29] MEDS ORDERED: Ondansetron PF 4 MG/2 ML Vial ONE (09:58)
[2020-01-29] MEDS: Ascorbic Acid 500 mg Chewable Tablet PO SCH ×2 (10:33→22:09)
[2020-01-29] MEDS: Ferrous Sulfate 325 MG TAB PO SCH ×2 (10:33→18:04)
[2020-01-29 12:08] LABS: SARS-CoV-2 MS2 Positive; SARS-CoV-2 N Gene Negative; SARS-CoV-2 S Gene Negative; SARS-CoV-2 by NAA Not Detected (NotDetected); SARS-CoV-2 orf1ab Negative
[2020-01-29] MEDS ORDERED: Fentanyl 100 MCG/2 ML VIAL ONE ×3 (13:11→14:56)
[2020-01-29] MEDS ORDERED: Midazolam HCl 2 mg/2 ml Vial ONE ×2 (13:11→13:22)
[2020-01-29] MEDS ORDERED: Promethazine HCl 25 MG/ML VIAL IM PRN (14:21)
[2020-01-29] MEDS ORDERED: Ondansetron HCl/PF 4 MG/2 ML Vial IVP PRN (14:21)
[2020-01-29] MEDS ORDERED: Promethazine HCl 25 MG/ML VIAL SLOW IVP PRN (14:21)
[2020-01-29] MEDS ORDERED: HYDROmorphone 2 MG/ML VIAL SLOW IVP PRN (14:21)
[2020-01-29] MEDS ORDERED: HYDROmorphone 2 MG/ML VIAL ONE (15:17)
[2020-01-29] MEDS: Morphine 2 MG/ML VIAL SLOW IVP PRN (17:07)
--- NOTE | 2020-01-29 20:02 | OP ---
DATE OF PROCEDURE: 01/29/2020 PROCEDURE PERFORMED: Irrigation and debridement of left tibial wound. PREOPERATIVE DIAGNOSIS: Dehiscence of left tibial wound. POSTOPERATIVE DIAGNOSIS: Dehiscence of left tibial wound. COMPLICATIONS: None. ESTIMATED BLOOD LOSS: Minimal. FITTINGS TIGHTENER: Liam Gonzalez PA-C. IMPLANTS: None. INDICATIONS: Ms. White is a 24-year-old female who has fractured her left tibial plateau. She had compartment syndrome, requiring fasciotomy and external fixation. She now has developed a dehiscence over the anterior tibial crest related to her previous wound. She has been indicated for irrigation and debridement of the wound to prevent infection and to help improve wound healing. Risks have been reviewed in detail. We have also indicated her for wound VAC placement. DESCRIPTION OF PROCEDURE: Ms. White was identified in the preoperative holding area. Her correct extremity was marked. She was carried to the operating room. She was positioned supine. General anesthesia was induced. A multidisciplinary time-out was performed. The left lower extremity was prepped and draped in sterile fashion. We began the procedure with excisional debridement of the skin edges using a knife. We debrided down sharply through the subcutaneous tissue to the fascial level. We thoroughly irrigated with copious lavage. We used a curette as well. We debrided approximately 5 cm x 2 cm. Again, we irrigated and then the Wound Care team came in and placed a wound VAC over the wound. This was successful. The patient was taken to the recovery room in good condition without complication. [facility] [employer] was involved in positioning the patient, preparing and drapping the limb, providing exposure by the use of retractors, wound closure, and dressing placement. Job ID: [id number] [facility] [place]
[2020-01-30] MEDS: Vancomycin 1 GM in Premix Bag 1 BAG IVPB SCH ×2 (03:30→17:04)
[2020-01-30] MEDS: Levothyroxine Sodium 25 MCG TAB PO SCH (05:03)
[2020-01-30] MEDS: Piperacillin/Tazobactam 3.375 GM in Sodium Chloride 0.9% 100 ML IVPB SCH ×4 (05:04→22:03)
[2020-01-30 05:05] LABS: #Eosinphils 0.1 thou/uL (0.0-0.7); #Lymphocytes 2.1 thou/uL (1.20-3.40); #Monocytes 0.4 thou/uL (0.11-0.59); #Neutrophils 4.4 thou/uL (1.40-6.50); %Basophils 0.2 % (0.0-1.0); %Eosinophils 1.2 % (0.0-10.0); %Monocytes 5.9 % (0.0-10.0); %Neutrophils 62.7 % (42.0-75.0); Hemoglobin 10.9 g/dL (12.0-16.0); Mean Corpuscular HGB CONC 31.9 g/dL (32.0-36.0); Mean Corpuscular Hemoglobin 30.7 pg (27.0-31.0); Mean Corpuscular Volume 96.3 fL (78.0-98.0); Mean Platelet Volume 8.9 fL (7.4-10.4); Platelet Count 231 thou/uL (130-400); RBC Distribution Width 14.7 % (11.5-14.5); Red Blood Cell (RBC) Count 3.56 mill/uL (4.20-5.40)
[2020-01-30] MEDS: Gabapentin 400 MG CAP PO SCH ×3 (08:59→22:01)
[2020-01-30] MEDS: Ascorbic Acid 500 mg Chewable Tablet PO SCH ×2 (09:00→22:01)
[2020-01-30] MEDS: Bupropion 150 MG XL TAB PO SCH (09:00)
[2020-01-30] MEDS: Ferrous Sulfate 325 MG TAB PO SCH ×2 (09:00→17:04)
[2020-01-30] MEDS: Lithium Carbonate 150 MG CAP PO SCH ×2 (09:01→22:02)
[2020-01-30] MEDS: OXcarbazepine 300 MG TAB PO SCH ×2 (09:01→22:01)
[2020-01-30] MEDS: HYDROcodone/Acetaminophen 10/325 mg Tablet PO PRN ×4 (09:02→22:02)
[2020-01-30] MEDS: traMADol HCl 50 MG TAB PO PRN ×2 (11:44→20:28)
[2020-01-30] MEDS: Morphine 2 MG/ML VIAL SLOW IVP PRN (15:25)
[2020-01-31 02:15] LABS: Vancomycin, Trough 7.9 ug/mL
[2020-01-31] MEDS: Vancomycin 1 GM in Premix Bag 1 BAG IVPB SCH (02:22)
[2020-01-31] MEDS: Piperacillin/Tazobactam 3.375 GM in Sodium Chloride 0.9% 100 ML IVPB SCH ×4 (04:28→22:37)
[2020-01-31] MEDS: HYDROcodone/Acetaminophen 10/325 mg Tablet PO PRN ×4 (04:32→21:35)
[2020-01-31] MEDS: Levothyroxine Sodium 25 MCG TAB PO SCH (04:32)
[2020-01-31] MEDS: Lithium Carbonate 150 MG CAP PO SCH ×2 (08:27→21:33)
[2020-01-31] MEDS: OXcarbazepine 300 MG TAB PO SCH ×2 (08:27→21:34)
[2020-01-31] MEDS: Gabapentin 400 MG CAP PO SCH ×3 (08:27→21:34)
[2020-01-31] MEDS: Ferrous Sulfate 325 MG TAB PO SCH ×2 (08:28→16:35)
[2020-01-31] MEDS: Morphine 2 MG/ML VIAL SLOW IVP PRN ×2 (08:28→18:06)
[2020-01-31] MEDS: Ascorbic Acid 500 mg Chewable Tablet PO SCH ×2 (08:28→21:34)
[2020-01-31] MEDS: Bupropion 150 MG XL TAB PO SCH (08:28)
[2020-01-31] MEDS: traMADol HCl 50 MG TAB PO PRN (14:36)
[2020-01-31] MEDS ORDERED: Vancomycin 1.5 GRAM/300 ML BAG 1.5 GM in Premix Bag 1 BAG IVPB SCH (15:00)
[2020-01-31] MEDS: Sulfameth/Trimethoprim DS 800-160mg TAB PO SCH (21:34)
[2020-02-01] MEDS: Piperacillin/Tazobactam 3.375 GM in Sodium Chloride 0.9% 100 ML IVPB SCH ×4 (03:45→21:40)
[2020-02-01] MEDS: Levothyroxine Sodium 25 MCG TAB PO SCH (05:37)
[2020-02-01] MEDS: Bupropion 150 MG XL TAB PO SCH (08:07)
[2020-02-01] MEDS: Ferrous Sulfate 325 MG TAB PO SCH ×2 (08:07→16:31)
[2020-02-01] MEDS: Lithium Carbonate 150 MG CAP PO SCH ×2 (08:07→21:39)
[2020-02-01] MEDS: HYDROcodone/Acetaminophen 10/325 mg Tablet PO PRN ×3 (08:08→17:55)
[2020-02-01] MEDS: Gabapentin 400 MG CAP PO SCH ×3 (08:08→21:39)
[2020-02-01] MEDS: Sulfameth/Trimethoprim DS 800-160mg TAB PO SCH ×2 (08:08→21:38)
[2020-02-01] MEDS: Ascorbic Acid 500 mg Chewable Tablet PO SCH ×2 (08:08→21:38)
[2020-02-01] MEDS: OXcarbazepine 300 MG TAB PO SCH ×2 (08:08→21:39)
[2020-02-01] MEDS: traMADol HCl 50 MG TAB PO PRN ×3 (09:56→21:36)
[2020-02-01] MEDS: Morphine 2 MG/ML VIAL SLOW IVP PRN (19:41)
[2020-02-02] MEDS: Piperacillin/Tazobactam 3.375 GM in Sodium Chloride 0.9% 100 ML IVPB SCH ×2 (04:16→09:55)
[2020-02-02] MEDS: Levothyroxine Sodium 25 MCG TAB PO SCH (06:41)
[2020-02-02] MEDS: HYDROcodone/Acetaminophen 10/325 mg Tablet PO PRN ×2 (06:53→13:42)
[2020-02-02] MEDS: Gabapentin 400 MG CAP PO SCH (08:18)
[2020-02-02] MEDS: OXcarbazepine 300 MG TAB PO SCH (08:19)
[2020-02-02] MEDS: Ascorbic Acid 500 mg Chewable Tablet PO SCH (08:19)
[2020-02-02] MEDS: Ferrous Sulfate 325 MG TAB PO SCH (08:19)
[2020-02-02] MEDS: Lithium Carbonate 150 MG CAP PO SCH (08:19)
[2020-02-02] MEDS: Bupropion 150 MG XL TAB PO SCH (08:19)
[2020-02-02] MEDS: Sulfameth/Trimethoprim DS 800-160mg TAB PO SCH (08:19)
[2020-02-02] MEDS: traMADol HCl 50 MG TAB PO PRN (09:54)
[2020-02-02 16:03] VITALS: BP 123/71; TEMP 98.6
[2020-02-02] MEDS ORDERED: Aspirin 81 mg Enteric Coated Tablet PO SCH (21:00)
== END 2020-02-02 16:42 | disposition home health service (06) | DRG 903 ==
LOC: SURG A 14:01
PROVIDERS: ADMIT Orthopaedic Surgery; ATTEND Orthopaedic Surgery
PROC: 0JBP0ZZ Excision of Left Lower Leg Subcutaneous Tissue and Fascia, Open Approach (ICD-10-PCS; principal; 2020-01-29)
DX: T81.30XA Disruption of wound, unspecified, initial encounter (principal); F17.210 Nicotine dependence, cigarettes, uncomplicated; F41.9 Anxiety disorder, unspecified; F31.9 Bipolar disorder, unspecified; Z20.828 Contact with and (suspected) exposure to other viral communicable diseases; Y83.8 Other surgical procedures as the cause of abnormal reaction of the patient, or of later complication, without mention of misadventure at the time of the procedure; Z88.0 Allergy status to penicillin
CPT/HCPCS: 36415; 80048; 80202; 85025; 87635; J1100; J1170; J2250; J2270; J2405; J2543; J2704; J3010; J3370; J3490; Q0163; U0003